=== PATIENT | female | born 1950 | race Caucasian/White ===

== ENCOUNTER 2020-02-01 06:33 | Outpatient (REF) | payer MEDICARE, OTHER, SELFPAY ==
[2020-02-01 07:31] LABS: MANUAL DIFF FLAG NO
[2020-02-01 07:42] LABS: Basophils Absolute Auto 0.1 X10*3/uL (0.0-0.2); Basophils Percent Auto 1.2 % (0-2); Eosinophils Absolute Auto 0.2 X10*3/uL (0.0-0.4); Eosinophils Percent Auto 3.5 % (0-4); Hematocrit 40.7 % (37-47); Hemoglobin 13.3 g/dl (12.0-16.0); Imm Gran Abs Auto 0.01 X10*3/uL (0.00-0.03); Imm Gran Pct Auto 0.2 % (0.0-0.4); Lymphocytes Percent Auto 41.7 % (20-40); Mean Corpuscular HGB Conc 32.7 g/dl (31.0-35.0); Mean Corpuscular Hemoglobin 29.4 pg (27.0-33.0); Mean Platelet Volume 10.7 fL (9.4-12.3); Monocytes Absolute Auto 0.5 X10*3/uL (0.1-1.2); Monocytes Percent Auto 9.7 % (2-11); Neutrophils Absolute Auto 2.1 X10*3/uL (2.0-8.3); Neutrophils Percent Auto 43.7 % (45-73); Platelet Count 270 X10*3/uL (160-400); Red Blood Count 4.52 X10*6/uL (4.20-5.50); Red Cell Distribution Width 12.8 % (11.0-16.0); White Blood Count 4.9 X10*3/uL (4.8-10.8)
[2020-02-01 08:02] LABS: Glucose Urine UA NEG (NEG); Leukocyte Esterase Urine 1+ (NEG); Nitrite Urine NEG (NEG); Specific Gravity - Urine 1.015 (1.005-1.025); Urine Blood NEG (NEG); Urine Ketones NEG (NEG); Urine Protein NEG (NEG-TRACE)
[2020-02-01 08:06] LABS: Appearance Urine CLEAR; Color Urine STRAW
[2020-02-01 08:08] LABS: Estimated Average Glucose 108 mg/dL; Hemoglobin A1c % 5.4 %
[2020-02-01 08:19] LABS: Alanine Aminotransferase 27 U/L (0-31); Albumin Level 4.2 g/dL (3.5-5.0); Alkaline Phosphatase 48 U/L (39-117); Anion Gap 11 (12-20); Aspartate Amino Transferase 23 U/L (5-31); Bilirubin Total 0.3 mg/dL (0.0-1.0); Blood Urea Nitrogen 12 mg/dL (9-16); Carbon Dioxide 28 mmol/L (22-29); Chloride 104 mmol/L (96-108); Cholesterol 228 mg/dL; Estimated Glomerular Filt Rate > 60; Glucose Fasting 99 mg/dL (60-99); HDL Cholesterol 46 mg/dL; LDL Cholesterol Calculated 124 mg/dl; Potassium 4.8 mmol/l (3.3-5.1); Sodium 138 mmol/L (135-145); Total Protein 6.7 g/dL (6.5-8.0); Triglycerides 294 mg/dL
[2020-02-01 08:32] LABS: Calcium 9.2 mg/dL (8.4-10.2)
[2020-02-01 08:34] LABS: Creatinine Urine 61.53 mg/dL; Microalbum/Creatinine Ratio Ur 14.6 ug/mg cr
[2020-02-01 08:35] LABS: RBC Urine 0 /HPF (0); Renal Epithelial Cells Urine TRACE /LPF; Squamous Epithelial Cell Urine TRACE /LPF
[2020-02-01 08:41] LABS: Vitamin D 25-OH Total 33.3 ng/mL (>30)
== END 2020-02-01 06:34 | disposition home or self-care (01) ==
LOC: HO.LAB 06:33
PROVIDERS: PCP Internal Medicine; Visit Provider Internal Medicine
DX: R73.03 Prediabetes (principal); E78.00 Pure hypercholesterolemia, unspecified; I10 Essential (primary) hypertension; N95.8 Other specified menopausal and perimenopausal disorders
CPT/HCPCS: 36415; 80053; 80061; 81001; 81003; 82043; 82306; 83036; 85025

== ENCOUNTER 2020-04-04 09:49 | Outpatient (REF) | payer MEDICARE, OTHER, SELFPAY | END 2020-04-04 09:50 | disposition home or self-care (01) | LOC: HO.LAB 09:49 | PROVIDERS: Visit Provider Internal Medicine | DX: Z20.828 Contact with and (suspected) exposure to other viral communicable diseases (principal) | CPT/HCPCS: C9803; U0003 ==

== ENCOUNTER 2021-02-07 10:10 | Outpatient (REF) | payer MEDICARE, OTHER, SELFPAY ==
[2021-02-07 10:14] LABS: MANUAL DIFF FLAG NO
[2021-02-07 10:27] LABS: Basophils Percent Auto 0.7 % (0-2); Eosinophils Absolute Auto 0.1 X10*3/uL (0.0-0.4); Eosinophils Percent Auto 2.4 % (0-4); Hematocrit 37.5 % (37-47); Hemoglobin 12.5 g/dl (12.0-16.0); Imm Gran Abs Auto 0.01 X10*3/uL (0.00-0.03); Imm Gran Pct Auto 0.2 % (0.0-0.4); Lymphocytes Absolute Auto 2.1 X10*3/uL (1.2-4.9); Lymphocytes Percent Auto 37.2 % (20-40); Mean Corpuscular HGB Conc 33.3 g/dl (31.0-35.0); Mean Corpuscular Hemoglobin 29.8 pg (27.0-33.0); Mean Corpuscular Volume 89.3 fL (80-98); Monocytes Absolute Auto 0.6 X10*3/uL (0.1-1.2); Monocytes Percent Auto 11.3 % (2-11); Neutrophils Absolute Auto 2.7 X10*3/uL (2.0-8.3); Neutrophils Percent Auto 48.2 % (45-73); Platelet Count 275 X10*3/uL (160-400); Red Cell Distribution Width 13.3 % (11.0-16.0); White Blood Count 5.5 X10*3/uL (4.8-10.8)
[2021-02-07 10:39] LABS: Alanine Aminotransferase 15 U/L (0-31); Alkaline Phosphatase 47 U/L (39-117); Anion Gap 12 (12-20); Aspartate Amino Transferase 19 U/L (5-31); Bilirubin Total 0.7 mg/dL (0.0-1.0); Blood Urea Nitrogen 11 mg/dL (9-16); Calcium 8.9 mg/dL (8.4-10.2); Carbon Dioxide 25 mmol/L (22-29); Chloride 104 mmol/L (96-108); Cholesterol 218 mg/dL; Estimated Glomerular Filt Rate > 60; Glucose Fasting 104 mg/dL (60-99); HDL Cholesterol 53 mg/dL; LDL Cholesterol Calculated 133 mg/dl; Potassium 4.1 mmol/L (3.3-5.1); Sodium 137 mmol/L (135-145); Total Protein 6.3 g/dL (6.5-8.0); Triglycerides 164 mg/dL
[2021-02-07 10:42] LABS: Estimated Average Glucose 108 mg/dL; Hemoglobin A1c % 5.4 %
[2021-02-07 11:12] LABS: Appearance Urine CLEAR; Color Urine YELLOW; Glucose Urine UA NEG (NEG); Leukocyte Esterase Urine TRACE (NEG); Nitrite Urine NEG (NEG); PH 6.5 (5.0-8.0); Urine Blood NEG (NEG); Urine Ketones NEG (NEG); Urine Protein NEG (NEG-TRACE)
[2021-02-07 11:44] LABS: RBC Urine 0-2 /HPF (0); Squamous Epithelial Cell Urine TRACE /LPF
[2021-02-07 11:47] LABS: Reflex LDLD? No
[2021-02-07 12:15] LABS: Creatinine Urine 107.66 mg/dL; Microalbum/Creatinine Ratio Ur 13.9 ug/mg cr
== END 2021-02-07 10:11 | disposition home or self-care (01) ==
LOC: HO.LNP 10:10
PROVIDERS: Visit Provider Internal Medicine
DX: R73.03 Prediabetes (principal); E78.00 Pure hypercholesterolemia, unspecified; I10 Essential (primary) hypertension
CPT/HCPCS: 80053; 80061; 81001; 81003; 82043; 83036; 85025

== ENCOUNTER 2021-03-30 11:46 | Outpatient (REF) | payer MEDICARE, OTHER, SELFPAY ==
[2021-03-30 12:40] LABS: COVID-19 Test Negative (Negative); IDNOW Serial# 16C4AD1C
== END 2021-03-30 11:47 | disposition home or self-care (01) ==
LOC: HO.LAB 11:46
PROVIDERS: Visit Provider Internal Medicine
DX: Z20.822 Contact with and (suspected) exposure to COVID-19 (principal)
CPT/HCPCS: 36415; 87635; C9803

== ENCOUNTER 2022-02-15 10:34 | Outpatient (REF) | payer MEDICARE, OTHER, SELFPAY ==
[2022-02-15 10:38] LABS: MANUAL DIFF FLAG NO
[2022-02-15 11:10] LABS: Appearance Urine Hazy; Basophils Absolute Auto 0.1 X10*3/uL (0.0-0.2); Color Urine Yellow; Eosinophils Absolute Auto 0.2 X10*3/uL (0.0-0.4); Eosinophils Percent Auto 3.4 % (0-4); Glucose Urine UA Negative (Negative); Hematocrit 41.3 % (37.0-47.0); Hemoglobin 13.7 g/dl (12.0-16.0); Imm Gran Abs Auto 0.02 X10*3/uL (0.00-0.03); Imm Gran Pct Auto 0.3 % (0.0-0.4); Leukocyte Esterase Urine Moderate (2+) (Negative); Lymphocytes Absolute Auto 2.1 X10*3/uL (1.2-4.9); Lymphocytes Percent Auto 35.3 % (20-40); Mean Corpuscular HGB Conc 33.2 g/dl (31.0-35.0); Mean Corpuscular Hemoglobin 29.5 pg (27.0-33.0); Mean Platelet Volume 11.5 fL (9.4-12.3); Monocytes Absolute Auto 0.7 X10*3/uL (0.1-1.2); Monocytes Percent Auto 12.3 % (2-11); Neutrophils Absolute Auto 2.8 x10*3/uL (2.0-8.3); Neutrophils Percent Auto 47.7 % (45-73); Nitrite Urine Negative (Negative); Platelet Count 257 X10*3/uL (160-400); Red Blood Count 4.64 X10*6/uL (4.20-5.50); Red Cell Distribution Width 13.5 % (11.0-16.0); UMIC TRIGGER UA YES; Urine Blood Trace (Negative); Urine Ketones Negative (Negative); Urine Protein Negative (Neg-Trace)
[2022-02-15 11:16] LABS: Bacteria Urine 1+ (None Seen); RBC Urine 0-2 /HPF (0-2); Renal Epithelial Cells Urine Present
[2022-02-15 11:19] LABS: Alanine Aminotransferase 24 U/L (0-31); Albumin Level 4.3 g/dL (3.5-5.0); Alkaline Phosphatase 45 U/L (39-117); Anion Gap 16 (12-20); Aspartate Amino Transferase 22 U/L (5-31); Bilirubin Total 0.6 mg/dL (0.0-1.0); Blood Urea Nitrogen 19 mg/dL (9-16); Calcium 9.2 mg/dL (8.4-10.2); Carbon Dioxide 23 mmol/L (22-29); Chloride 102 mmol/L (96-108); Cholesterol 255 mg/dL; Estimated Glomerular Filt Rate > 60; Glucose Fasting 103 mg/dL (60-99); HDL Cholesterol 59 mg/dL; LDL Cholesterol Calculated 162 mg/dl; Potassium 4.2 mmol/L (3.3-5.1); Sodium 137 mmol/L (135-145); Total Protein 6.9 g/dL (6.5-8.0); Triglycerides 172 mg/dL
[2022-02-15 11:20] LABS: Estimated Average Glucose 108 mg/dL; Hemoglobin A1c % 5.4 %
[2022-02-15 11:53] LABS: Creatinine Urine 98.82 mg/dL; Microalbum/Creatinine Ratio Ur 17.2 ug/mg cr
== END 2022-02-15 10:35 | disposition home or self-care (01) ==
LOC: HO.LNP 10:34
PROVIDERS: Visit Provider Internal Medicine
DX: R73.09 Other abnormal glucose (principal); E78.00 Pure hypercholesterolemia, unspecified; I10 Essential (primary) hypertension
CPT/HCPCS: 80053; 80061; 81001; 82043; 83036; 85025

== ENCOUNTER 2023-02-21 11:43 | Outpatient (REF) | payer MEDICARE, OTHER, SELFPAY ==
[2023-02-21 11:48] LABS: MANUAL DIFF FLAG NO
[2023-02-21 12:25] LABS: Basophils Absolute Auto 0.1 X10*3/uL (0.0-0.2); Basophils Percent Auto 1.2 % (0-2); Eosinophils Absolute Auto 0.2 X10*3/uL (0.0-0.4); Eosinophils Percent Auto 4.5 % (0-4); Hematocrit 42.5 % (37.0-47.0); Hemoglobin 13.7 g/dl (12.0-16.0); Imm Gran Abs Auto 0.01 X10*3/uL (0.00-0.03); Imm Gran Pct Auto 0.2 % (0.0-0.4); Lymphocytes Absolute Auto 1.9 X10*3/uL (1.2-4.9); Lymphocytes Percent Auto 37.5 % (20-40); Mean Corpuscular HGB Conc 32.2 g/dl (31.0-35.0); Mean Corpuscular Hemoglobin 29.1 pg (27.0-33.0); Mean Corpuscular Volume 90.4 fL (80.0-98.0); Monocytes Absolute Auto 0.7 X10*3/uL (0.1-1.2); Monocytes Percent Auto 14.8 % (2-11); Neutrophils Absolute Auto 2.1 x10*3/uL (2.0-8.3); Neutrophils Percent Auto 41.8 % (45-73); Platelet Count 291 X10*3/uL (160-400); Red Cell Distribution Width 12.9 % (11.0-16.0); White Blood Count 4.9 X10*3/uL (4.8-10.8)
[2023-02-21 12:46] LABS: Alanine Aminotransferase 29 U/L (0-31); Alkaline Phosphatase 47 U/L (39-117); Anion Gap 12 (12-20); Aspartate Amino Transferase 34 U/L (5-31); Bilirubin Total 0.5 mg/dL (0.0-1.0); Blood Urea Nitrogen 15 mg/dL (9-16); Calcium 9.2 mg/dL (8.4-10.2); Carbon Dioxide 27 mmol/L (22-29); Chloride 105 mmol/L (96-108); Cholesterol 265 mg/dL (<200); Estimated Glomerular Filt Rate > 60; Glucose Fasting 96 mg/dL (60-99); HDL Cholesterol 56 mg/dL (>40); LDL Cholesterol Calculated 175 mg/dL (<100); Potassium 4.1 mmol/L (3.3-5.1); Sodium 140 mmol/L (135-145); Total Protein 6.9 g/dL (6.5-8.0); Triglycerides 171 mg/dL (<150)
[2023-02-21 13:18] LABS: Estimated Average Glucose 108 mg/dL; Hemoglobin A1c % 5.4 % (<6.0)
== END 2023-02-21 11:44 | disposition home or self-care (01) ==
LOC: HO.LNP 11:43
PROVIDERS: Visit Provider Internal Medicine
DX: R73.03 Prediabetes (principal); E78.00 Pure hypercholesterolemia, unspecified; I10 Essential (primary) hypertension
CPT/HCPCS: 80053; 80061; 83036; 85025

== ENCOUNTER 2023-02-26 13:10 | Outpatient (REF) | payer MEDICARE, OTHER, SELFPAY ==
[2023-02-26 13:58] LABS: Appearance Urine Clear; Color Urine Yellow; Glucose Urine UA Negative (Negative); Leukocyte Esterase Urine Small (1+) (Negative); Nitrite Urine Negative (Negative); Specific Gravity - Urine <= 1.005 (1.005-1.025); UMIC TRIGGER UACC YES; Urine Blood Negative (Negative); Urine Ketones Negative (Negative); Urine Protein Negative (Neg-Trace)
[2023-02-26 14:08] LABS: Bacteria Urine None Seen (None Seen); Hyaline Casts Urine 0-2 /LPF (0-2); RBC Urine 0-2 /HPF (0-2); Squamous Epithelial Cell Urine 0-2 /HPF (0-2); UACC Culture Trigger YES; WBC Urine 0-5 /HPF (0-5)
[2023-02-26 14:46] LABS: Creatinine Urine 23.14 mg/dL; Microalbum/Creatinine Ratio Ur 25.9 ug/mg cr (<30)
== END 2023-02-26 13:11 | disposition home or self-care (01) ==
LOC: HO.LNP 13:10
PROVIDERS: Visit Provider Internal Medicine
DX: R73.03 Prediabetes (principal)
CPT/HCPCS: 81001; 82043; 82570; 87086

== ENCOUNTER 2023-03-22 15:49 | Outpatient (REF) | payer MEDICARE, OTHER, SELFPAY ==
[2023-03-22 16:05] LABS: Appearance Urine Clear; Color Urine Yellow; Glucose Urine UA Negative (Negative); Leukocyte Esterase Urine Moderate (2+) (Negative); Nitrite Urine Negative (Negative); PH 6.5 (5.0-9.0); Specific Gravity - Urine 1.015 (1.005-1.025); UMIC TRIGGER UA YES; Urine Blood Negative (Negative); Urine Ketones Negative (Negative); Urine Protein Negative (Neg-Trace)
[2023-03-22 16:18] LABS: Bacteria Urine None Seen (None Seen); Hyaline Casts Urine 0-2 /LPF (0-2); RBC Urine 0-2 /HPF (0-2); Squamous Epithelial Cell Urine 0-2 /HPF (0-2)
== END 2023-03-22 15:50 | disposition home or self-care (01) ==
LOC: HO.LNP 15:49
PROVIDERS: Visit Provider Internal Medicine
DX: R31.9 Hematuria, unspecified (principal)
CPT/HCPCS: 81001; 81003

== ENCOUNTER 2023-08-27 12:06 | Outpatient (REF) | payer MEDICARE, OTHER, SELFPAY ==
[2023-08-27 12:31] LABS: Estimated Average Glucose 114 mg/dL; Hemoglobin A1c % 5.6 % (<6.0)
[2023-08-27 12:32] LABS: Alanine Aminotransferase 23 U/L (0-31); Albumin Level 4.1 g/dL (3.5-5.0); Alkaline Phosphatase 49 U/L (39-117); Aspartate Amino Transferase 25 U/L (5-31); Bilirubin Direct 0.2 mg/dL (0.0-0.5); Bilirubin Total 0.5 mg/dL (0.0-1.0); Cholesterol 156 mg/dL (<200); Glucose Fasting 95 mg/dL (60-99); HDL Cholesterol 64 mg/dL (>40); LDL Cholesterol Calculated 70 mg/dL (<100); Total Protein 7.1 g/dL (6.5-8.0); Triglycerides 113 mg/dL (<150)
[2023-08-27 13:34] LABS: Reflex LDLD? No
== END 2023-08-27 12:07 | disposition home or self-care (01) ==
LOC: HO.LNP 12:06
PROVIDERS: Visit Provider Internal Medicine
DX: R73.09 Other abnormal glucose (principal); E78.00 Pure hypercholesterolemia, unspecified
CPT/HCPCS: 80061; 80076; 82947; 83036

== ENCOUNTER 2024-02-17 11:30 | Outpatient (REF) | payer MEDICARE, OTHER, SELFPAY ==
[2024-02-17 11:38] LABS: MANUAL DIFF FLAG NO
[2024-02-17 11:53] LABS: Basophils Absolute Auto 0.1 X10*3/uL (0.0-0.2); Basophils Percent Auto 1.1 % (0-2); Eosinophils Absolute Auto 0.3 X10*3/uL (0.0-0.4); Eosinophils Percent Auto 4.6 % (0-4); Hematocrit 40.8 % (37.0-47.0); Hemoglobin 13.1 g/dl (12.0-16.0); Imm Gran Abs Auto 0.02 X10*3/uL (0.00-0.03); Imm Gran Pct Auto 0.3 % (0.0-0.4); Lymphocytes Absolute Auto 2.2 X10*3/uL (1.2-4.9); Lymphocytes Percent Auto 34.1 % (20-40); Mean Corpuscular HGB Conc 32.1 g/dl (31.0-35.0); Mean Corpuscular Hemoglobin 28.8 pg (27.0-33.0); Mean Corpuscular Volume 89.7 fL (80.0-98.0); Mean Platelet Volume 10.7 fL (9.4-12.3); Monocytes Absolute Auto 0.6 X10*3/uL (0.1-1.2); Monocytes Percent Auto 9.5 % (2-11); Neutrophils Absolute Auto 3.2 x10*3/uL (2.0-8.3); Neutrophils Percent Auto 50.4 % (45-73); Platelet Count 290 X10*3/uL (160-400); Red Blood Count 4.55 X10*6/uL (4.20-5.50); Red Cell Distribution Width 12.6 % (11.0-16.0); White Blood Count 6.3 X10*3/uL (4.8-10.8)
[2024-02-17 11:56] LABS: Appearance Urine Clear; Color Urine Yellow; Glucose Urine UA Negative (Negative); Leukocyte Esterase Urine Small (1+) (Negative); Nitrite Urine Negative (Negative); Specific Gravity - Urine 1.015 (1.005-1.025); UMIC TRIGGER UACC YES; Urine Blood Negative (Negative); Urine Ketones Negative (Negative); Urine Protein Negative (Neg-Trace)
[2024-02-17 12:06] LABS: Estimated Average Glucose 114 mg/dL; Hemoglobin A1C 131.9267 umol/L; Hemoglobin A1c % 5.6 % (<6.0); Total Hemoglobin (HGBA1C) 3508.0224 umol/L
[2024-02-17 12:22] LABS: Bacteria Urine None Seen (None Seen); Hyaline Casts Urine 0-2 /LPF (0-2); RBC Urine 0-2 /HPF (0-2); Squamous Epithelial Cell Urine 0-2 /HPF (0-2); UACC Culture Trigger YES; WBC Urine 0-5 /HPF (0-5)
[2024-02-17 12:29] LABS: Creatinine Urine 143.21 mg/dL; Microalbum/Creatinine Ratio Ur 14.6 ug/mg cr (<30)
[2024-02-17 13:23] LABS: Alanine Aminotransferase 28 U/L (0-31); Albumin Level 4.1 g/dL (3.5-5.0); Alkaline Phosphatase 55 U/L (39-117); Anion Gap 15 (12-20); Aspartate Amino Transferase 30 U/L (5-31); Bilirubin Total 0.6 mg/dL (0.0-1.0); Blood Urea Nitrogen 10 mg/dL (9-16); Calcium 9.5 mg/dL (8.4-10.2); Carbon Dioxide 23 mmol/L (22-29); Chloride 105 mmol/L (96-108); Cholesterol 145 mg/dL (<200); Estimated Glomerular Filt Rate > 60; Glucose Fasting 102 mg/dL (60-99); HDL Cholesterol 62 mg/dL (>40); LDL Cholesterol Calculated 58 mg/dL (<100); Potassium 4.2 mmol/L (3.3-5.1); Sodium 139 mmol/L (135-145); Triglycerides 127 mg/dL (<150)
== END 2024-02-17 11:31 | disposition home or self-care (01) ==
LOC: HO.LNP 11:30
PROVIDERS: Visit Provider Internal Medicine
DX: Z00.01 Encounter for general adult medical examination with abnormal findings (principal); R73.09 Other abnormal glucose; E78.00 Pure hypercholesterolemia, unspecified; I10 Essential (primary) hypertension; R82.90 Unspecified abnormal findings in urine
CPT/HCPCS: 80053; 80061; 81001; 82043; 82570; 83036; 85025; 87086

== ENCOUNTER 2025-02-18 11:19 | Outpatient (REF) | payer MEDICARE, OTHER, SELFPAY ==
--- OUTSIDE RECORDS SUMMARY | 2024-02-21 04:30 | XMS_ITS ---
Author Organization Wei Calles MD Address [address] [place], [place] [id number] Care Team Providers Care Bulldozer Engineer Name Role Phone Wei Calles Primary Care Provider Allergies Allergen (clinical drug ingredient) Drug/Non Drug Allergy documented on EMR Reaction Allergy Type Onset Date Status codeine codeine (uncoded) nauseau Allergy Ac tive REASON FOR VISIT review labs Medications Medication SIG (Take, Route, Frequency, Duration) Notes Start Date End Date Status Prevacid 15 MG 1 capsule Orally Onc e a day Active Ventolin HFA * 108 (90 Base) MCG/ACT 2 puffs as needed Inhalation every 4 hrs 08/19/2012 Active Hyoscyamine Sulfate ER 0.375 MG TAKE ONE TABLET BY MOUTH EVERY TWELVE HOURS Active Ibuprofen 800 MG 1 tablet Orally Thre e times a day for 30 days 01/29/2011 Not-Taki ng Gabapentin 100 MG 1 capsule Orally Onc e a day Active Atorvastatin Calcium 40 MG TAKE 1 TABLET BY MOUTH EVERY DAY FOR 90 DAYS Active ZyrTEC Allergy 10 MG 1 tablet Orally Onc e a day for 30 day(s) Active Social History Tobacco Use: Social History Observation Description Date Details (start date - stop date) Never Smoker NA - NA Tobacco Use/Smoking Question Answer Notes Patient is a nonsmoker Additional Findings: Tobacco Non-User Cu rrent non-smoker, currently using no form of tobacco Alcohol Screen Question Answer Notes Did you have a drink contain ing alcohol in the past year? Yes How often did you have a dri nk containing alcohol in the past year? 2 to 4 times a month (2 points) How many drinks did you have on a typical day when you were drinking in the past year? 1 or 2 drinks (0 point) How often did you have 6 or more drinks on one occasion in the past year? Never (0 point) Points 2 Interpretation Negative Vital Signs Blood pressure systolic 122 mm Hg 02/21/20 24 Blood pressure diastolic 64 mm Hg 024 Height 68 in 02/21/2024 Weight 176 lbs 02/21/2024 BMI 26.76 kg/m2 02/21/2024 weight is up 7 pounds since 09-03-23 Encounters Encounter Location Date Provider Diagnosis Wei Calles MD [address] [place] [phone] 02/21/2024 Wei Calles Prediabetes R73.09 ; Pure hypercholesterolemia E78.00 ; Elevated blood pressure I10 ; Annual visit for general adult medical examination with abnormal findings Z00.01 ; Irritable bowel syndrome without diarrhea K58.9 ; Gastroesophageal reflux disease without esophagitis K21.9 ; Mild intermittent asthma without complication J45.20 and Depression screening Z13.31 Assessments Encounter Date Diagnosis (ICD Code) Assessment Notes Treatment Notes Treatment Clinical Notes Section Notes 02/21/2024 Prediabetes (ICD-10 - R73.09) good a1c, no need for medication at this time 02/21/2024 Pure hypercholesterolemia (ICD-10 - E78.00) doing great on meds, will contnue current regiment 02/21/2024 Elevated blood press ure (ICD-10 - I10) well controlled, will continue current regiment 02/21/2024 Annual visit for gen eral adult medical examination with abnormal findings (ICD-10 - Z00.01) labs reviewed and discussed with patient 02/21/2024 Irritable bowel synd brandon without diarrhea (ICD-10 - K58.9) stable, will continue current regiment 02/21/2024 Gastroesophageal ref lux disease without esophagitis (ICD-10 - K21.9) doing well, will continue current regiment 02/21/2024 Mild intermittent as thma without complication (ICD-10 - J45.20) stable, will continue current regiment 02/21/2024 Depression screening (ICD-10 - Z13.31) negative screen 02/21/2024 Other Total time spent on the date of the encounter is 45 minutes including both face to face time spent and time spent reviewing documentation , and counseling the patient. Plan Of Treatment Medication Medication Name Sig Start Date Stop Date Notes Prevacid 15 MG 1 capsule Orally Once a day Ventolin HFA * 108 (90 Base) MCG/ACT 2 puffs as needed Inhalation every 4 hrs 08/19/2012 Hyoscyamine Sulfate ER 0.375 MG TAKE ONE TABLET BY MOUTH EVERY TWELVE HOURS Atorvastatin Calcium 40 MG TAKE 1 TABLET BY MOUTH EVERY DAY FOR 90 DAYS Treatment Notes Assessment Notes Prediabetes good a1c, no need fo r medication at this time Pure hypercholesterolemia doing great on meds, will contnue current regiment Elevated blood pressure well controlled, will continue current regiment Annual visit for general buddy lt medical examination with abnormal findings labs reviewed and discussed with patient Irritable bowel syndrome without diarrhe a stable, will continue current regiment Gastroesophageal reflux dise ase without esophagitis doing well, will continue current regiment Mild intermittent asthma without complic ation stable, will continue current regiment Depression screening negative screen Other Total time spent on the date of the encounter is 45 minutes including both face to face time spent and time spent reviewing documentation, and counseling the patient. Next Appt Details Follow Up: 1 Year, Reason: Provider Name:Wei hodge, 02/25/2025 08:00:00 AM, [address] [place] [address], [address], [place], [place], [phone], Progress Notes * PRUDENCE, KarJohnOB: 9 (73 yo F)Acc No.[id number]:02/21/2024 Patient: Angelina Logan Provider: Beena Calles MD :1950 A ge:73 Y S ex:Female Date:02/21/2024 Address:[address] [place] [address] Justin tae [id number] Subjective: * Chief Complaints: * R eview labs * HPI: D epression Screening: PHQ-9 L ittle interest or pleasure in doing things N ot at all, F eeling down, depressed, or hopeless N ot at all, T rouble falling or staying asleep, or sleeping too much N ot at all, F eeling tired or having little energy N ot at all, P oor appetite or overeating N ot at all, F eeling bad about yourself or that you are a failure, or have let yourself or your family down N ot at all, T rouble concentrating on things, such as reading the newspaper or watching television N ot at all, M oving or speaking so slowly that other people could have noticed; or the opposite, being so fidgety or restless that you have been moving around a lot more than usual N ot at all, T houghts that you would be better off or of hurting yourself in some way N ot at all, T otal Score 0 . I nterpretation and Intervention D epression Screening Findings N egative, F ollow-Up for Depression : review of PHQ-9 found negative result, no follow-up needed. C ommunication Needs: Communication Needs D oes the patient have a hearing impairment N o, D oes the patient have a vision impairment? Y es, I f yes, what is the vision impairment? G lasses, D oes the patient have a cognition impairment? N o. F all Risk: History H ave you had any falls with injury in the past year? N o, H ave you had two or more falls in the past year? N o. S CHARLY Questions: SDOH Questions I n the past year have you been worried about losing housing? N o, I n the past year have you or any family members you live with been unable to get any of the following when it was really needed? Check all that apply: N one. S ymptom(s): patient is a 73 yo female here for review of labs and follow up of chronic issues. back is bothering her. * ROS: G eneral/Constitutional: Patient denies f atigue , headache. C hange in appetite?denies. C hills d enies. F ever d enies. O phthalmologic: Blurred vision d enies. D ischarge d enies. P ain d enies. E NT: Patient denies d ecreased sense of smell , any loss of taste , sore throat. D ecreased hearing d enies. S ore throat d enies. S wollen glands d enies. E ndocrine: Cold intolerance d enies. E xcessive thirst d enies. H eat intolerance d enies. W eight loss d enies. R espiratory: Cough d enies. S hortness of breath at rest d enies. S hortness of breath with exertion d enies. W heezing d enies. C ardiovascular: Chest pain at rest d enies. C hest pain with exertion?denies. I rregular heartbeat d enies. S hortness of breath d enies. ? G astrointestinal: Abdominal pain d enies. C hange in bowel habits d enies. D iarrhea d enies. N ausea d enies. R ectal bleeding d enies. V omiting d enies . G enitourinary: Blood in urine d enies. D ifficulty urinating d enies. F requent urination d enies. U rinary incontinence D enies. M usculoskeletal: Patient denies m uscle aches. P ainful joints d enies. W eakness d enies. P eripheral Vascular: Patient denies r ed and blue toes. S kin: Dry skin d enies. I tching d enies. D enies?Mole(s), changes in moles, new moles or any lesions of concern. D enies P hotosensitivity. R merced d enies. N eurologic: Dizziness d enies. F ainting d enies. H eadache?denies. * Medical History: * Surgical History: * Hospitalization/Major Diagno stic Procedure: * Family History: F ather: 86 yrs, diagnosed with Alzheimer disease. M other: 69 yrs, diagnosed with Cancer. 1 sister(s) . . Father- Alzheimer's Mother Pancreatic cancer, Denies mental health/substance abuse family history, No pertinent family medical history. * Social History: T obacco Use: T obacco Use/Smoking P atient is a n onsmoker, A dditional Findings: Tobacco Non-User C urrent non-smoker, currently using no form of tobacco. D rugs/Alcohol: A lcohol Screen D id you have a drink containing alcohol in the past year? Y es, H ow often did you have a drink containing alcohol in the past year? 2 to 4 times a month (2 points), H ow many drinks did you have on a typical day when you were drinking in the past year? 1 or 2 drinks (0 point), H ow often did you have 6 or more drinks on one occasion in the past year? N ever (0 point), P oints 2 , I nterpretation N egative. M iscellaneous: C affeine: yes, frequency:, 1-2 cups per day. no Children. no Community involvements. Exercise: yes, , weights and cardio. Home smoke detector use: yes. Housing: owning. Living with: family. Occupation: weeks/months/years, retired. Pets: none. no Travel outside of the [place]. * Medications: T akingZyrTEC Allergy 10 MG Tablet 1 tablet Orally Once a dayVentolin HFA * 108 (90 Base) MCG/ACT Aerosol Solution 2 puffs as needed Inhalation every 4 hrsPrevacid 15 MG Capsule Delayed Release 1 capsule Orally Once a dayGabapentin 100 MG Capsule 1 capsule Orally Once a dayHyoscyamine Sulfate ER 0.375 MG Tablet Extended Release 12 Hour TAKE ONE TABLET BY MOUTH EVERY TWELVE HOURS Atorvastatin Calcium 40 MG Tablet TAKE 1 TABLET BY MOUTH EVERY DAY FOR 90 DAYS Taking ZyrTEC Allergy 10 MG Tablet 1 tablet Orally Once a dayTaking Ventolin HFA * 108 (90 Base) MCG/ACT Aerosol Solution 2 puffs as needed Inhalation every 4 hrsTaking Prevacid 15 MG Capsule Delayed Release 1 capsule Orally Once a dayTaking Gabapentin 100 MG Capsule 1 capsule Orally Once a dayTaking Hyoscyamine Sulfate ER 0.375 MG Tablet Extended Release 12 Hour TAKE ONE TABLET BY MOUTH EVERY TWELVE HOURS Taking Atorvastatin Calcium 40 MG Tablet TAKE 1 TABLET BY MOUTH EVERY DAY FOR 90 DAYS Not-Taking/PRNIbuprofen 800 MG Tablet 1 tablet Orally Three times a dayMedication List reviewed and reconciled with the patientNot-Taking/PRN Ibuprofen 800 MG Tablet 1 tablet Orally Three times a dayMedication List reviewed and reconciled with the patient * Allergies: c odeine: nauseauyes[Allergies Verified] Objective: * Vitals: H t: 68, Wt:176, BMI:26.76, BP:122/64 weight is up 7 pounds since 09-03-23. * P ast Orders: L ab:Lipid Panel (Order Date - 02/17/2024) (Collection Date - 02/17/2024) Value Reference Range Triglycerides 127 <150 - mg/dL Cholesterol 145 <200 - mg/dL LDL Cholesterol Calculated 58 <100 - mg/dL HDL Cholesterol 62 >40 - mg/dL L ab:Microalbumin, Random (Order Date - 02/17/2024) (Collection Date - 02/17/2024) Value Reference Range Creatinine Urine 143.21 - mg/dL Microalbumin Urine 21.0 - mg/L Microalbum Creatinine Ratio Ur 14.6 <30 - ug/ mg cr L ab:Hemoglobin A1c (Order Date - 02/17/2024) (Collection Date - 02/17/2024) Value Reference Range Hemoglobin A1c % 5.6 <6.0 - % Estimated Average Glucose 114 - mg/dL L ab:UA ClnCatch+Micro w/rflx Cult (Order Date - 02/17/2024) (Collection Date - 02/17/2024) Value Reference Range Color Urine Yellow - Appearance Urine Clear - PH 7.0 5.0-9.0 - Glucose Urine UA Negative Negative - mg/dL Urine Blood Negative Negative - Specific [place] - Urine 1.015 1.005-1.025 - Urine Protein Negative Neg-Trace - mg/dL Urine Ketones Negative Negative - mg/dL Nitrite Urine Negative Negative - Leukocyte Esterase Urine Small (1+) A Negative - RBC Urine 0-2 0-2 - /HPF WBC Urine 0-5 0-5 - /HPF Squamous Epithelial Cell Urine 0-2 0-2 - /HP F Bacteria Urine None Seen None Seen - Hyaline Casts Urine 0-2 0-2 - /LPF L ab:Complete Blood Count Auto Diff (Order Date - 02/17/2024) (Collection Date - 02/17/2024) Value Reference Range White Blood Count 6.3 4.8-10.8 - X10*3/uL Red Blood Count 4.55 4.20-5.50 - X10*6/uL Hemoglobin 13.1 12.0-16.0 - g/dl Hematocrit 40.8 37.0-47.0 - % Mean Corpuscular Volume 89.7 80.0-98.0 - fL Mean Corpuscular Hemoglobin 28.8 27.0-33.0 - pg Mean Corpuscular HGB Conc 32.1 31.0-35.0 - g/ dl Red Cell Distribution Width 12.6 11.0-16.0 - % Platelet Count 290 160-400 - X10*3/uL Mean Platelet Volume 10.7 9.4-12.3 - fL Neutrophils Percent Auto 50.4 45-73 - % Imm Gran Pct Auto 0.3 0.0-0.4 - % Lymphocytes Percent Auto 34.1 20-40 - % Monocytes Percent Auto 9.5 2-11 - % Eosinophils Percent Auto 4.6 H 0-4 - % Basophils Percent Auto 1.1 0-2 - % NRBC Pct Auto 0.0 0.0-0.2 - /100WBC Neutrophils Absolute Auto 3.2 2.0-8.3 - x10* 3/uL Imm Gran Abs Auto 0.02 0.00-0.03 - X10*3/uL Lymphocytes Absolute Auto 2.2 1.2-4.9 - X10* 3/uL Monocytes Absolute Auto 0.6 0.1-1.2 - X10*3/ uL Eosinophils Absolute Auto 0.3 0.0-0.4 - X10* 3/uL Basophils Absolute Auto 0.1 0.0-0.2 - X10*3/ uL NRBC Abs Auto 0.000 0.0-0.012 - X10*3/uL L ab:Comprehensive [place]. Panel Fast (Order Date - 02/17/2024) (Collection Date - 02/17/2024) Value Reference Range Sodium 139 135-145 - mmol/L Bilirubin Total 0.6 0.0-1.0 - mg/dL Aspartate Amino Transferase 30 5-31 - U/L Alanine Aminotransferase 28 0-31 - U/L Total Protein 7.0 6.5-8.0 - g/dL Albumin Level 4.1 3.5-5.0 - g/dL Alkaline Phosphatase 55 39-117 - U/L Potassium 4.2 3.3-5.1 - mmol/L Chloride 105 96-108 - mmol/L Carbon Dioxide 23 22-29 - mmol/L Anion Gap 15 12-20 - Blood Urea Nitrogen 10 9-16 - mg/dL Creatinine 0.76 0.5-1.4 - mg/dL Estimated Glomerular Filt Rate > 60 - Glucose Fasting 102 H 60-99 - mg/dL Calcium 9.5 8.4-10.2 - mg/dL * Examination: G eneral Examination: GENERAL APPEARANCE: w ell developed, well nourished, in no acute distress. HEAD: n ormocephalic, atraumatic. EYES: p upils equal, round, reactive to light and accommodation, sclera non-icteric. EARS: n ormal. ORAL CAVITY: m ucosa moist. THROAT: c lear. NECK/THYROID: n moris supple, full range of motion, no cervical lymphadenopathy, no bruits. SKIN: w arm and dry, no suspicious lesions. HEART: r egular rate and rhythm, S1, S2 normal, no murmurs.? LUNGS: c lear to auscultation bilaterally. BREASTS: N o mass, no lump. ABDOMEN: s oft, nontender, nondistended, bowel sounds present, normal, no organomegaly , no masses palpable. RECTAL EXAM: d one by bore mill operator. FEMALE GENITOURINARY: d one by bore mill operator. EXTREMITIES: n o clubbing, cyanosis, or edema. NEUROLOGIC: n onfocal, motor strength normal upper and lower extremities, sensory exam intact. Assessment: * Assessment: 1. P rediabetes - R73.09 (Primary) 2 . P ure hypercholesterolemia - E78.00 3 . E levated blood pressure - I10 4 . A nnual visit for general adult medical examination with abnormal findings - Z00.01 5 . I rritable bowel syndrome without diarrhea - K58.9 6 . Gastroesophageal reflux disease without esophagitis - K21.9 7 . M ild intermittent asthma without complication - J45.20 8 . D epression screening - Z13.31 Plan: * Treatment: 2. P ure hypercholesterolemia Continue Atorvastatin Calcium Tablet, 40 MG, TAKE 1 TABLET BY MOUTH EVERY DAY FOR 90 DAYS. ? Notes: doing great on meds, will contnue current regiment 3. E levated blood pressure Notes: well controlled, will continue current regiment 4. A nnual visit for general adult medical examination with abnormal findings Notes: labs reviewed and discussed with patient 5. I rritable bowel syndrome without diarrhea Continue Hyoscyamine Sulfate ER Tablet Extended Release 12 Hour, 0.375 MG, TAKE ONE TABLET BY MOUTH EVERY TWELVE HOURS. Notes: stable, will continue current regiment 6. G astroesophageal reflux disease without esophagitis Continue Prevacid Capsule Delayed Release, 15 MG, 1 capsule, Orally, Once a day. Notes: doing well, will continue current regiment 7. M ild intermittent asthma without complication Continue Ventolin HFA * Aerosol Solution, 108 (90 Base) MCG/ACT, 2 puffs as needed, Inhalation, every 4 hrs. Notes: stable, will continue current regiment 8. D epression screening Notes: negative screen 9. O thers Notes: Total time spent on the date of the encounter is 45 minutes including both face to face time spent and time spent reviewing documentation, and counseling the patient. * Procedure Codes: * Preventive Medicine: Counseling: C are goal follow-up plan: C ounseling for abnormal BMI provided?Yes, A carter Normal BMI Follow-up G iving encouragement to exercise. * Follow Up: 1 Year * * Sign off status: Completed true * Provider: Beena Calles MD Date: 04/22/2023 Generated for Zan solorzano/Ellen/Jenniferitting on: 04/20/2024 02:09 PM EST History and Physical Notes * HPI (History of Present Illness) Category Sub-Category Detail Notes Category Not es Symptom(s) patient is a 73 yo female here for review of labs and follow up of chronic issues. back is bothering her. Depression Screening PHQ-9 Little inte rest or pleasure in doing things: Not at all Feeling down, depressed, or hopeless: No t at all Trouble falling or staying asleep, or sl eeping too much: Not at all Feeling tired or having little energy: N ot at all Poor appetite or overeating: Not at all Feeling bad about yourself o r that you are a failure, or have let yourself or your family down: Not at all Trouble concentrating on thi ngs, such as reading the newspaper or watching television: Not at all Moving or speaking so slowly that other people could have noticed; or the opposite, being so fidgety or restless that you have been moving around a lot more than usual: Not at all Thoughts that you would be b mercy off or of hurting yourself in some way: Not at all Total Score: 0 Interpretation and Intervention Depression Cynthia mckeon Findings: Negative Follow-Up for Depression: : review of PH Q-9 found negative result, no follow-up needed SDOH Questions SDOH Questions In the past year have you been worried about losing housing?: No In the past year have you or any family members you live with been unable to get any of the following when it was really needed? Check all that apply:: None Fall Risk History Have you had any falls with injury i n the past year?: No Have you had two or more falls in the year?: No Communication Needs Communication Needs Does the patient have a hearing impairment: No Does the patient have a vision impairmen t?: Yes If yes, what is the vision impairment?: Glasses Does the patient have a cognition impair ment?: No Examination Category Sub-Category Detail Notes Category Not es General Examination GENERAL APPEARANCE: well dev eloped, well nourished, in no acute distress HEAD: normocephalic, atrau matic EYES: pupils equal, round, reactive to light and accommodation, sclera non-icteric EARS: normal THROAT: clear NECK/THYROID: neck supple, full ra nge of motion, no cervical lymphadenopathy, no bruits HEART: regular rate and rhy thm, S1, S2 normal, no murmurs LUNGS: clear to auscultatio n bilaterally ABDOMEN: soft, nontender, non distended, bowel sounds present, normal, no organomegaly , no masses palpable NEUROLOGIC: nonfocal, motor stre ngth normal upper and lower extremities, sensory exam intact SKIN: warm and dry, no carmen picious lesions EXTREMITIES: no clubbing, cyanosi s, or edema BREASTS: No mass, no lump RECTAL EXAM: done by bore mill operator FEMALE GENITOURINARY: done by bore mill operator ORAL CAVITY: mucosa moist
[2025-02-18 11:22] LABS: MANUAL DIFF FLAG NO
[2025-02-18 11:42] LABS: Hematocrit 40.3 % (37.0-47.0); Hemoglobin 13.1 g/dl (12.0-16.0); Imm Gran Abs Auto 0.01 X10*3/uL (0.00-0.03); Imm Gran Pct Auto 0.2 % (0.0-0.4); Lymphocytes Absolute Auto 2.0 X10*3/uL (1.2-4.9); Mean Corpuscular HGB Conc 32.5 g/dl (31.0-35.0); Mean Corpuscular Hemoglobin 28.9 pg (27.0-33.0); Mean Corpuscular Volume 89.0 fL (80.0-98.0); NRBC Abs Auto 0.000 X10*3/uL (0.0-0.012); NRBC Pct Auto 0.0 /100WBC (0.0-0.2); Platelet Count 292 X10*3/uL (160-400); Red Blood Count 4.53 X10*6/uL (4.20-5.50); White Blood Count 5.3 X10*3/uL (4.8-10.8)
[2025-02-18 11:46] LABS: Appearance Urine Clear; Glucose Urine UA Negative (Negative); PH 6.5 (5.0-9.0); Specific Gravity - Urine 1.015 (1.005-1.025); UMIC TRIGGER UACC YES
[2025-02-18 11:51] LABS: Alanine Aminotransferase 23 U/L (0-31); Albumin Level 4.4 g/dL (3.5-5.0); Alkaline Phosphatase 50 U/L (39-117); Anion Gap 11 (12-20); Aspartate Amino Transferase 27 U/L (5-31); Blood Urea Nitrogen 14 mg/dL (9-16); Calcium 9.1 mg/dL (8.4-10.2); Carbon Dioxide 26 mmol/L (22-29); Chloride 107 mmol/L (96-108); Cholesterol 135 mg/dL (<200); Estimated Glomerular Filt Rate > 60; HDL Cholesterol 53 mg/dL (>40); Potassium 4.2 mmol/L (3.3-5.1); Sodium 140 mmol/L (135-145); Total Protein 6.8 g/dL (6.5-8.0); Triglycerides 85 mg/dL (<150)
[2025-02-18 11:54] LABS: UACC Culture Trigger YES
[2025-02-18 12:03] LABS: Microalbum/Creatinine Ratio Ur 36.0 ug/mg cr (<30)
--- OUTSIDE RECORDS SUMMARY | 2025-02-18 14:10 | XMS_ITS | Patient Health Record ---
Author Organization Wei Calles MD Address [address] [place], [place] [id number] Care Team Providers Care Stoker Mechanic Name Role Phone Wei Calles Primary Care Provider Allergies Allergen (clinical drug ingredient) Drug/Non Drug Allergy documented on EMR Reaction Allergy Type Onset Date Status codeine codeine (uncoded) nauseau Allergy Ac tive Results Component Value Reference Range Notes Complete Blood Count Auto Di ff (Not yet reviewed by provider) Interpretation: Performing Lab:[facility], [address] [place] [id number] Notes/Report: White Blood Count 5.3 4.8-10.8 X10*3/uL Red Blood Count 4.53 4.20-5.50 X10*6/uL Hemoglobin 13.1 12.0-16.0 g/dl Hematocrit 40.3 37.0-47.0 % Mean Corpuscular Volume 89.0 80.0-98.0 fL Mean Corpuscular Hemoglobin 28.9 27.0-33.0 pg Mean Corpuscular HGB Conc 32.5 31.0-35.0 g/dl Red Cell Distribution Width 13.0 11.0-16.0 % Platelet Count 292 160-400 X10*3/uL Mean Platelet Volume 11.2 9.4-12.3 fL Neutrophils Percent Auto 47.6 45-73 % Imm Gran Pct Auto 0.2 0.0-0.4 % Lymphocytes Percent Auto 37.2 20-40 % Monocytes Percent Auto 9.5 2-11 % Eosinophils Percent Auto 4.2 0-4 % Basophils Percent Auto 1.3 0-2 % NRBC Pct Auto 0.0 0.0-0.2 /100WBC Neutrophils Absolute Auto 2.5 2.0-8.3 x10*3/u L Imm Gran Abs Auto 0.01 0.00-0.03 X10*3/uL Lymphocytes Absolute Auto 2.0 1.2-4.9 X10*3/u L Monocytes Absolute Auto 0.5 0.1-1.2 X10*3/uL Eosinophils Absolute Auto 0.2 0.0-0.4 X10*3/u L Basophils Absolute Auto 0.1 0.0-0.2 X10*3/uL NRBC Abs Auto 0.000 0.0-0.012 X10*3/uL UA ClnCatch+Micro w/rflx Cul t (Not yet reviewed by provider) Interpretation: Performing Lab:[facility], [address] [place] [phone] Notes/Report: Urine, Clean Catch Color Urine Yellow Appearance Urine Clear PH 6.5 5.0-9.0 Glucose Urine UA Negative Negative mg/dL Urine Blood Negative Negative Specific [place] - Urine 1.015 1.005-1.025 Urine Protein Negative Neg-Trace mg/dL Urine Ketones Negative Negative mg/dL Nitrite Urine Negative Negative Leukocyte Esterase Urine Large (3+) Negative RBC Urine 0-2 0-2 /HPF WBC Urine 21-50 0-5 /HPF Squamous Epithelial Cell Urine 3-5 0-2 /HPF Bacteria Urine None Seen None Seen Hyaline Casts Urine 0-2 0-2 /LPF Lipid Panel Reviewed date:02/18/2025 12:50:02 PM Interpretation: Performing Lab:[address] [phone] Notes/Report: Triglycerides 85 <150 mg/dL Desirable Triglyceride: less than 150 mg/dL Borderline High Triglyceride 150-199 mg/dL High Triglyceride: 200-499 mg/dL Very High Triglyceride: greater than or equal to 5OO mg/dL Cholesterol 135 <200 mg/dL Desirable Cholesterol: less than 200 mg/dL Borderline High Cholesterol: 200-239 mg/dL High Cholesterol: greater than 239 mg/dL LDL Cholesterol Calculated 65 <100 mg/dL Desirable LDL: less than 100 mg/dL Near Optimal/Above Optimal LDL: 110-129 mg/dL Borderline High LDL: 130-159 mg/dL High LDL: 160-189 mg/dL Very High LDL: greater than or equal to 190 mg/dL HDL Cholesterol 53 >40 mg/dL Desirable HDL: greater than 40 mg/dL Note: This HDL assay may give artificially low results in patients with liver disease. Microalbumin, Random Reviewed date:02/18/2025 12:50:29 PM Interpretation: Performing Lab:[address] [phone] Notes/Report: Creatinine Urine 91.50 Microalbumin Urine 33.0 Microalbum/Creatinine Ratio Ur 36.0 <30 ug/mg cr Albumin/Creatinine Ratio Reference Ranges: Normal: < 30 ug/mg creatinine Microalbuminuria: 30 - 300 ug/mg creatinine Clinical Albuminuria: > 300 ug/mg creatinine Hemoglobin A1c Reviewed date:02/18/2025 12:49:43 PM Interpretation: Performing Lab:[facility], [address] [place] [phone] Notes/Report: Hemoglobin A1c % 5.6 <6.0 % Hemoglobin A1C Reference Range Adults: 4.8 - 6.0 % Non diabetic: < 6.0 % Goal: < 7.0 % Additional Action Suggested: > 8.0 % Note: Hemoglobin A1c results are invalid for patients with abnormal amounts of HbF. Blood transfusions may impact the HbA1c concentration in the patient sample. Estimated Average Glucose 114 eAG = Estimated average glucose which is %A1C expressed as average glucose, using the formula of the F0Q-Hckyyad Average Glucose study (ADAG), Diabetes Care, Vol.31,#8, 2007 Comprehensive Met. Panel (No t yet reviewed by provider) Interpretation: Performing Lab:[address] [phone] Notes/Report: Sodium 140 135-145 mmol/L Potassium 4.2 3.3-5.1 mmol/L Chloride 107 96-108 mmol/L Carbon Dioxide 26 22-29 mmol/L Anion Gap 11 12-20 Blood Urea Nitrogen 14 9-16 mg/dL Creatinine 0.72 0.5-1.4 mg/dL Estimated Glomerular Filt Rate > 60 Chronic Kidney Disease: Estimated GFR < 60 mL/min/1.73m2 Severe Kidney Disease: Estimated GFR < 15 mL/min/1.73m2 Glucose Random 100 60-115 mg/dL Calcium 9.1 8.4-10.2 mg/dL Bilirubin Total 0.5 0.0-1.0 mg/dL Aspartate Amino Transferase 27 5-31 U/L Alanine Aminotransferase 23 0-31 U/L Total Protein 6.8 6.5-8.0 g/dL Albumin Level 4.4 3.5-5.0 g/dL Alkaline Phosphatase 50 39-117 U/L Hold Gold Reviewed date:02/18/2025 12:45:05 PM Interpretation: Performing Lab:[facility], [address] [place] [phone] Notes/Report: Danielle Gold See Note Specimen held untested for 24 hours; Call to request Chemistry testing. Reason For Referral Reason PLEASE MAURICIO Tate FOR COLONOSCOPY Diagnosis 1 Encounter for screen ing for malignant neoplasm of colon (Z12.11) Referral Organization Wei Calles MD Referring Provider First Name Wei Referring Provider Last Name Marli Referring Provider Speciality Internal M edicine Referred Provider NOREEN DAVE Referred Provider Specialty Gastroentero logy General Notes Precious Moya 0 07/20/2024 10:25:17 AM > referral info faxedGriffin Annette 07/24/2024 01:18:15 PM > was told by office referral is being worked onGriffin Annette 08/07/2024 01:21:18 PM > was told to refaxGriffin Annette 08/21/2024 10:42:18 AM > referral info mailed to patient Referral Priority Routine Referral Appointment Date 02/09/2025 Medications Medication SIG (Take, Route, Frequency, Duration) Notes Start Date End Date Status Prevacid 15 MG 1 capsule Orally Onc e a day Active Ventolin HFA * 108 (90 Base) MCG/ACT 2 puffs as needed Inhalation every 4 hrs 08/19/2012 Active Hyoscyamine Sulfate ER 0.375 MG TAKE ONE TABLET BY MOUTH EVERY TWELVE HOURS for 90 Active Atorvastatin Calcium 40 MG TAKE 1 TABLET BY MOUTH EVERY DAY for 90 Active Ibuprofen 800 MG 1 tablet Orally Thre e times a day for 30 days 01/29/2011 Not-Keni ng ZyrTEC Allergy 10 MG 1 tablet Orally Onc e a day for 30 day(s) Active Gabapentin 100 MG 1 capsule Orally Onc e a day Active Immunizations Vaccine Route Administration Date Status Comme nts Flu Vaccine IM Intramuscular 01/29/2011 Administered PPSV23 (Pnemovax) IM Intramuscular 01/29/2011 Administered Shingles IM Intramuscular 09/03/2011 Administered Flu Vaccine IM Intramuscular 03/03/2012 Administered Flu Vaccine IM Intramuscular 02/17/2013 Administered Fluarix Quadrivalent IM Intramuscular 12/15/2013 Administe red Prevnar 13 IM Intramuscular 03/29/2014 Administered Fluarix Quadrivalent IM Intramuscular 01/18/2015 Administe red Fluarix Quadrivalent IM Intramuscular 12/27/2015 Administe red TDaP IM Intramuscular 01/03/2016 Administered Fluarix Quadrivalent IM Intramuscular 01/07/2017 Administe red PPSV23 (Pnemovax) IM Intramuscular 01/29/2017 Administered Fluarix Quadrivalent IM Intramuscular 01/14/2018 Administe red Influenza High Dose IM Intramuscular 01/20/2019 Administer ed Fluarix Quadrivalent IM Intramuscular 02/01/2020 Administe red Influenza High Dose IM Intramuscular 12/29/2020 Administer ed SARS-COV-2 Moderna Unknown 05/20/2020 Administered SARS-COV-2 Moderna Unknown 06/17/2020 Administered Shingrix Unknown 10/31/2020 Administered Shingrix Unknown 01/10/2021 Administered Influenza High Dose IM Intramuscular 02/15/2022 Administer ed SARS-COV-2 Moderna Unknown 03/05/2021 Administered SARS-COV-2 Moderna Unknown 11/13/2021 Administered SARS-COV-2 Moderna Unknown 03/27/2022 Administered Influenza High Dose IM Intramuscular 02/12/2023 Administer ed Influenza High Dose IM Intramuscular 12/31/2023 Administer ed Influenza High Dose IM Intramuscular 02/18/2025 Administer ed Flu Vaccine Unknown 12/15/2013 Pending Social History Tobacco Use: Social History Observation [...] Never (0 point) Points 2 Interpretation Negative Problems Problem Type SNOMED Code ICD Code Onset Dates Problem Status W/U Status Risk Notes Problem 71180298 Irritable bowel syndrome without diarrhea (K58.9) Active confirmed Problem 671607710 Other specified menopausal and perimenopausal disorders (N95.8) Active confirmed Problem 321215041 Gastroesophageal reflux disease without esophagitis (K21.9) Active confirmed Problem 364722560 Mild intermitten t asthma without complication (J45.20) Active confirmed Problem 6699324 Prediabetes (R73.09) Active confirmed Problem Elevated blood pressure (35165030) Elevated blood pressure (I10) Active confirmed Problem 899304365 Pure hypercholesterolemia (E78.00) Active confirmed Problem 23723205 Allergic rhiniti s due to other allergen (J30.89) Active confirmed Vital Signs Blood pressure diastolic 64 mm Hg 02/21/2024 rob ght is up 7 pounds since 09-03-23 Height 68 in 02/21/2024 weight is up 7 pounds since 09-03-23 Blood pressure systolic 122 mm Hg 02/21/2024 weig ht is up 7 pounds since 09-03-23 Weight 176 lbs 02/21/2024 weight is up 7 pounds since 09-03-23 BMI 26.76 kg/m2 02/21/2024 weight is up 7 pounds since 09-03-23 Encounters Encounter Location Date Provider Diagnosis Wei Calles MD [address] [place] [id number] 02/18/2025 Wei [employer]ardier Prediabetes R73.09 ; Pure hypercholesterolemia E78.00 and Encounter for administration of vaccine Z23 Wei Calles MD [address] [place] [id number] 02/21/2024 Wei Bombardier Prediabetes R73.09 ; Pure hypercholesterolemia E78.00 ; Elevated blood pressure I10 ; Annual visit for general adult medical examination with abnormal findings Z00.01 ; Irritable bowel syndrome without diarrhea K58.9 ; Gastroesophageal reflux disease without esophagitis K21.9 ; Mild intermittent asthma without complication J45.20 and Depression screening Z13.31 Assessments Encounter Date Diagnosis (ICD Code) Assessment Notes Treatment Notes Treatment Clinical Notes Section Notes 02/18/2025 Prediabetes (ICD-10 - R73.09) 02/18/2025 Pure hypercholesterolemia (ICD-10 - E78.00) 02/21/2024 Prediabetes (ICD-10 - R73.09) good a1c, no need for medication at this time 02/21/2024 Pure hypercholesterolemia (ICD-10 - E78.00) doing great on meds, will contnue current regiment 02/18/2025 Encounter for administration of vaccine (ICD-10 - Z23) 02/21/2024 Elevated blood press ure (ICD-10 - I10) well controlled, will continue current regiment 02/21/2024 Annual visit for [facility] adult medical examination with abnormal findings (ICD-10 [...] and counseling the patient. Plan Of Treatment Pending Test Test Name Order Date CT ABD & PELVIS WITH CONTRAST 02/16/2021 XR CHEST 2 VIEW PA & LAT 04/01/2012 Complete Blood Count Auto Diff 5 Comprehensive Met. Panel 02/18/2025 Comprehensive [place]. Panel Fast 5 MM diagnostic mammo BI 09/20/2023 UA ClnCatch+Micro w/rflx Cult 02/18/2025 Next Appt Details Provider Name:Wei Salas ier, 02/25/2025 08:00:00 AM, [address], [address], [place], [place], [id number], Insurance Providers Payer Name Payer Address Payer Phone Subscriber Number Group Number Insured Name Patient Relationship to Insured Coverage Start Date Coverage End Date [employer] [address] [place] [address] [id number] Angelina Beltre Self - patient is the insured [facility] [address] [place] [phone] [id number] Angelina Beltre Self - patient is the insured Medical (General) History Medical History History ICD Code colonoscopy 01/2010 due in 1 0 years; Colonoscopy done 01/20/[address] Noreen Dave tubular adenoma
== END 2025-02-18 11:20 | disposition home or self-care (01) ==
LOC: HO.LNP 11:19
PROVIDERS: Visit Provider Internal Medicine
DX: R73.09 Other abnormal glucose (principal); E78.00 Pure hypercholesterolemia, unspecified
CPT/HCPCS: 80053; 80061; 81001; 82043; 82570; 83036; 85025; 87086